=== PATIENT | male | born 1965 | race African-American/Black ===

== ENCOUNTER 2018-07-27 07:32 | Day surgery (SDC) | payer OTHER ==
[2018-07-21 12:18] VITALS: BMI 30.4
[~2018-07-27 07:32] MED LIST: MICROFIBRILLAR COLLAGEN 1 GM EACH TP ONE
[2018-07-27] MEDS ORDERED: MICROFIBRILLAR COLLAGEN 1 GM EACH ONE (08:26)
[2018-07-27] MEDS ORDERED: MIDAZOLAM HCL 2 MG/2 ML SINGLE DOSE VIAL ONE (09:16)
[2018-07-27] MEDS ORDERED: fentaNYL CITRATE 250 MCG/5 ML VIAL ONE (09:18)
[2018-07-27] MEDS ORDERED: PROPOFOL 20 ML ONE ×6 (09:19→10:15)
[2018-07-27] MEDS ORDERED: SUCCINYLCHOLINE CHLORIDE 200 MG/10 ML VIAL ONE (09:19)
[2018-07-27] MEDS ORDERED: ceFAZolin SODIUM 1 GM VIAL IVPB ONE (09:23)
[2018-07-27] MEDS ORDERED: LIDOCAINE 1%/EPI 1:100000 (50 ML MULTI DOSE VIAL) NR ONE ×2 (09:55)
[2018-07-27] MEDS ORDERED: MICROFIBRILLAR COLLAGEN 1 GM EACH TP ONE (10:08)
[2018-07-27] MEDS ORDERED: NEOSTIGMINE METHYLSULFATE 0.5 MG/ML - 10 ML MDV ONE (11:36)
--- NOTE | 2018-07-27 11:59 | OP ---
Operative Note - Note: Operative Date: 07/27/18 Pre-Operative Diagnosis: Thyroid nodules Operation: Total thyroidectomy and parathyroid reimplantation Post-Operative Diagnosis: Same as Pre-op Surgeon: Ty Hubbard Boat Hoist Operator Helper: Alessandro Moreno Anesthesiologist/CLERICAL ADVISER: Laura Soria MD Anesthesia: General Estimated Blood Loss (mls): 50 Fluid Volume Replaced (mls): 1,000 Operative Report Dictated: Yes
--- NOTE | 2018-07-27 12:01 | SURG ---
Surgery Historic Preservationist Note Historic Preservationist: Alessandro Moreno PA-C Date of Service: 07/27/18 Diagnosis: Thyroid nodules Procedure: Total thyroidectomy with parathyroid reimplantation I was present for the entirety of the operative procedure. For further detail, please refer to operative report.
[2018-07-27] MEDS ORDERED: ONDANSETRON 4 MG/2 ML VIAL IVPUSH PRN (12:03)
[2018-07-27] MEDS ORDERED: LACTATED RINGERS SOLUTION 1,000 ML IV SCH ×2 (12:15)
[2018-07-27] MEDS ORDERED: ACETAMINOPHEN 1000 MG/100 ML VIAL (NON FORMULARY) IVPB ONE (13:13)
--- NOTE | 2018-07-27 13:40 | OP ---
DATE OF OPERATION: 07/27/2018 SURGICAL ATTENDING: Ann Marie Cabrera MD PREOPERATIVE DIAGNOSIS: Thyroid goiter. POSTOPERATIVE DIAGNOSIS: Thyroid goiter. ANESTHESIA: General endotracheal. PROCEDURE: 1. Total thyroidectomy. 2. Parathyroid auto transplantation. 3. Neck ultrasound. DESCRIPTION OF PROCEDURE: The patient was taken into the operating room and placed in a supine position. Endotracheally intubated. Neck ultrasound was performed showed bilateral thyroid nodularity with no neck lymphadenopathy. The neck was then prepped and draped in the usual sterile fashion. Local anesthesia was administered, and a 6-cm horizontal incision was made in an upper neck skin crease and carried down through the subcutaneous tissues and platysma. Subplatysmal flaps were raised superiorly and inferiorly, and flap hooks were placed for exposure. The median raphae was incised, and the strap muscles were elevated off the thyroid gland. Dissection began on the left side where the recurrent laryngeal nerve, superior laryngeal nerve, and parathyroid glands were identified and preserved. The left inferior parathyroid gland could not be preserved intact and, therefore, was re-implanted in 2 portions in the left sternocleidomastoid muscle and marked by Prolene sutures. The right recurrent laryngeal nerve and superior laryngeal nerves were identified and preserved. The right superior and inferior parathyroid glands were also preserved. The superior, inferior, and posterior attachments to the thyroid gland were transected. The thyroid gland was then taken off the trachea, and in this way it was removed. Note that both thyroid lobes were inspected for parathyroid tissue, and none was found. They were then handed off for permanent pathological evaluation. Frozen section was taken of a biopsy of the left inferior parathyroid gland before reimplantation, and this was confirmed to be parathyroid tissue. Hemostasis was achieved with electrocautery and Avitene. Valsalva maneuvers were performed, and no bleeding was found. Note that nerve monitoring was used throughout the entire operation. The wound was then closed in 3 layers. Dermabond was placed. The patient was then extubated, awakened, and taken to recovery in stable condition. Dr. Cabrera, the attending surgeon, was present throughout the entire procedure. ANN MARIE CABRERA M.D. [id number]
[2018-07-27] MEDS ORDERED: CALCITRIOL 0.25 MCG CAPSULE (FP) PO STA (14:33)
[2018-07-27] MEDS ORDERED: CALCIUM CARBONATE 650 MG TABLET PO STA (14:38)
[2018-07-27] MEDS ORDERED: CALCITRIOL 0.25 MCG CAPSULE (FP) PO ONE (15:30)
[2018-07-27] MEDS ORDERED: CALCIUM CARBONATE 650 MG TABLET PO ONE (15:30)
[2018-07-27] MEDS ORDERED: oxyCODONE HCL 5 MG TABLET ONE (15:36)
[2018-07-27] MEDS ORDERED: oxyCODONE HCL 5 MG TABLET PO ONE (15:40)
[2018-07-27] MEDS ORDERED: oxyCODONE HCL 5 MG TABLET PO PRN ×2 (16:03)
[2018-07-27 17:06] VITALS: BP 150/72; PULSE 68; TEMP 97.8
[2018-07-28] MEDS ORDERED: CALCIUM CARBONATE 650 MG TABLET PO SCH (10:00)
[2018-07-28] MEDS ORDERED: CALCITRIOL 0.25 MCG CAPSULE (FP) PO SCH (10:00)
--- NOTE | 2018-07-30 10:12 | PATH ---
Surgical Pathology Report Patient Name: SHIRA CHRISTIAN [facility]. Rec. #: [id number] /Age/Gender: 1965 (Age: 53) / M Account: [id number] Location: [facility] SURGICAL Taken: 07/27/2018 Received: 07/27/2018 Reported: 07/30/2018 Physicians: Ty Hubbard M.D. Specimen(s) Received A: LEFT INFERIOR PARATHYROID GLAND B: LEFT THYROID, TOTAL LOBE C: RIGHT THYROID, TOTAL LOBE Clinical History Thyroid nodule Intraoperative Consult Diagnosis Left inferior parathyroid, frozen section: Parathyroid tissue present. Loc Jones M.D., 07/27/2018 Final Diagnosis A. INFERIOR PARATHYROID, LEFT, BIOPSY(FS): PARATHYROID TISSUE. B. THYROID LOBE, LEFT, THYROIDECTOMY: PAPILLARY THYROID CARCINOMA, FOLLICULAR VARIANT. CARCINOMA MEASURES 1.6 CM IN GREATEST MICROSCOPIC DIMENSION. NO LYMPHOVASCULAR INVASION IDENTIFIED. NO EXTRA THYROIDAL EXTENSION IDENTIFIED. SURGICAL MARGINS ARE NEGATIVE. REMAINDER OF THYROID PARENCHYMA SHOWS MULTINODULAR HYPERPLASIA, CYSTIC CHANGES, AND FOCAL CHANGES SUGGESTIVE OF CHRONIC LYMPHOCYTIC THYROIDITIS. CHANGES OF PRIOR BIOPSY PRESENT. SEE INVASIVE SUMMARY BELOW. PATHOLOGIC STAGE (pTNM): pT1b pN0. C. THYROID LOBE, RIGHT, THYROIDECTOMY: BENIGN THYROID WITH MULTI NODULAR HYPERPLASIA AND FOCAL CHANGES SUGGESTIVE OF CHRONIC LYMPHOCYTIC THYROIDITIS. ONE BENIGN PERITHYROIDAL LYMPH NODE (0/1). Comment: Suggest clinical/radiologic and serologic correlation. Office of Dr. Hubbard informed that significant findings with faxed ([employer]). Comments Thyroid: Surgical Pathology Cancer Case Summary (Based on AJCC 8 th edition) Procedure _X_ Total thyroidectomy Tumor Focality _X_ Unifocal Tumor Site _X__ Left lobe Tumor Size Greatest dimension (centimeters): _1.6__ cm Histologic Type _X_ Papillary carcinoma, follicular variant, infiltrative Margins _X_ Uninvolved by carcinoma Angioinvasion (Vascular Invasion) _X_ Not identified Lymphatic Invasion _X_ Not identified Extrathyroidal Extension _X_ Not identified Regional Lymph Nodes Number of Lymph Nodes Examined: 1 Number of Lymph Nodes Involved: 0 Specify Arianna Levels _X_ Level - perithyroidal Pathologic Stage Classification (pTNM, AJCC 8th Edition) Primary Tumor (pT) _X_ pT1b: Tumor >1 cm but =2 cm in greatest dimension, limited to the thyroid Regional Lymph Nodes (pN) _X_ pN0: No evidence of locoregional lymph node metastasis Additional Pathologic Findings _X_ Adenomatoid nodule(s) or nodular follicular disease (eg, nodular hyperplasia, goitrous thyroid) _X_ Thyroiditis (specify type): Suggestive of Chronic lymphocytic thyroiditis Electronically Signed Katiana Vargas M.D. Gross Description A. Received fresh labeled "left inferior parathyroid," is a 0.4 x 0.2 x 0.1 cm mijares-red portion of soft tissue. The specimen is submitted in toto for frozen section. The frozen section residue is entirely submitted in one cassette. B. Received in formalin labeled "left thyroid lobe," is a 93 g, 8.3 x 5.3 x 3.8 cm thyroid lobe. The outer surface is mijares brown and intact. Sectioning reveals abundant heterogeneous, focally hemorrhagic colloid nodules. The largest nodule measures 3.2 cm in greatest dimension and displays a 1.6 cm solid component. The remaining thyroid parenchyma is red-brown and beefy. [employer] sections are sequentially submitted in 12 cassettes with the solid component of largest nodule in cassettes 5-8. C. Received in formalin labeled "right thyroid lobe," is a 44 g, 5.5 x 4.7 x 2.4 cm thyroid lobe. The outer surface is mijares brown and intact. Sectioning reveals abundant mijares colloid nodules measuring up to 2 cm in greatest dimension. The remaining thyroid parenchyma is red-brown and beefy. [employer] sections are sequentially submitted in 8 cassettes. 07/27/2018 [facility]07/27/2018
== END 2018-07-27 16:30 | disposition home or self-care (01) ==
LOC: JASU-SURG 07:32
PROVIDERS: ATTEND Surgery
PROC: 0GBJ0ZZ Excision of Thyroid Gland Isthmus, Open Approach (ICD-10-PCS; 2018-07-27)
PROC: 0GSQ0ZZ Reposition Multiple Parathyroid Glands, Open Approach (ICD-10-PCS; 2018-07-27)
PROC: 0GTK0ZZ Resection of Thyroid Gland, Open Approach (ICD-10-PCS; principal; 2018-07-27 09:00)
DX: E04.2 Nontoxic multinodular goiter (principal)
CPT/HCPCS: 82962; 86850; 86900; 86901; 88305-TC; 88307-TC; 88331-TC; 94760; J0131

== ENCOUNTER → 2019-10-12 | Day surgery (SDC) | payer OTHER ==
--- NOTE | 2019-10-26 11:00 | PATH ---
Surgical Pathology Report Patient Name: SHIRA CHRISTIAN [facility]. Rec. #: [id number] /Age/Gender: 1965 (Age: 54) / M Account: [id number] Location: RADIOLOGY INTER Taken: 10/12/2019 Received: 10/12/2019 Reported: 10/26/2019 Physicians: Steven Crawford M.D. Ty Hubbard M.D. Specimen(s) Received RIGHT AXILLARY LYMPH NODE ALSO RECEIVED TISSUE IN RPMI Clinical History 59-year-old male with history of follicular thyroid cancer status post resection now with bulky right axillary lymph node Final Diagnosis Surgical pathology report with immunohistochemistry analysis performed at [place], [place] shows the following: LYMPH NODE, RIGHT AXILLA, NEEDLE BIOPSIES: B CELL SMALL LYMPHOCYTIC LYMPHOMA/CHRONIC LYMPHOCYTIC LEUKEMIA, SEE COMMENT. Comment: The pau architecture is effaced by a diffuse lymphoid infiltrate composed of small lymphocytes. Paler areas consistent with "proliferation centers" are noted. Immunostains show the neoplastic cells to be positive for CD20, PAX-5, CD5, CD23 and IgD but negative for BCL-1. CD3 stains small reactive T cells. AE1/AE3 is negative for metastatic carcinoma. 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 Clinicopathologic correlation is recommended. This case was sent to [place], [place] ([id number]) and reviewed by Mehnaz Israel M.D, Ph.D. The diagnosis above reflects his opinion. FLOW CYTOMETRY performed and interpreted at [facility] [place] ([id number]) shows the following: INTERPRETATION: LYMPH NODE, RIGHT AXILLARY: - B cell chronic lymphocytic leukemia/small lymphocytic lymphoma (CLL/SLL). COMMENT Correlation with morphologic evaluation of the original tissue sections is recommended. Phenotype A monoclonal lambda B-cell population co-expressing CD5 and CD23 is present (60%). There is dim surface lambda expression and dim CD20 expression. The B-cells (60% of total) appear polytypic. The T-cells (38% of total) show no rothman T-cell antigenic deletion. CD4/8=1.7:1. The results were discussed with Dr. Hubbard on 10/26/2019. Electronically Signed Eliza Cagle M.D. Gross Description Received in formalin labeled "right axilla lymph node," are 3 mijares, cylindrical portions of soft tissue ranging from 1.2-2.0 cm in length and averaging 0.1 cm in diameter. The specimens are submitted in toto in one cassette. 10/12/201910/12/2019
== END | disposition home or self-care (01) ==
LOC: JRADIR 09:50
PROVIDERS: ATTEND Surgery
PROC: 07D53ZX Extraction of Right Axillary Lymphatic, Percutaneous Approach, Diagnostic (ICD-10-PCS; principal; 2019-10-12)
DX: C83.04 Small cell B-cell lymphoma, lymph nodes of axilla and upper limb (principal)
CPT/HCPCS: 76942-TC; 88305-TC